=== PATIENT | female | born 1980 | race Caucasian/White ===

== ENCOUNTER 2019-09-01 12:49 | Emergency (ER) | payer MEDICAID ==
[2019-09-01] MEDS ORDERED: AMOXICILLIN 500MG CAPSULE PO ONE (13:02)
[2019-09-01] MEDS ORDERED: HYDROCODONE/APAP 5/325MG TABLET PO ONE (13:02)
[2019-09-01] MEDS ORDERED: DEXAMETHASONE SOD PHOSPHATE 10MG/ML VIAL PO ONE (13:02)
--- NOTE | 2019-09-01 13:02 | Emergency Department Record ---
History of Present Illness - General Stated complaint: SORE THROAT/EAR/HEADACHE PAIN Time Seen by Provider: 09/01/19 12:51 Source: Patient Mode of Arrival: Ambulatory Limitations: No limitations - History of Present Illness Initial comments: 38yo female presents with sore throat and ear pain for about 4 days. She states she woke up on with a sore throat. She was seen in the [facility] care and had a negative strep screen. Since the onset she has developed a pain in right ear, the roof of her mouth, teeth and jaw. No fever. No swelling. No rash. No facial redness or rash. No facial weakness. No eye or vision symptoms. MD complaint: Ear pain, Sore throat -: Days(s) (4) Location: R ear, Throat Severity: Severe Quality: Sharp, Stabbing Consistency: Constant Improves with: None Worsens with: None - Related Data Previous Rx's Medication Instructions Recorded Amoxicillin 500Mg Capsule [Amoxil] 500 mg PO TID #21 tab 09/01/19 Hydrocodone/Acetaminophen [Avon 1 each PO Q6H #8 tablet 09/01/19 5-325 Tablet] Methylprednisolone [Medrol Dose 4 mg PO DAILY #1 tab.ds.pk 09/01/19 Pack] Allergies Allergy/AdvReac Type Severity Reaction Status Date / Time No Known Drug Allergies Allergy Unverified 08/29/19 16:17 Review of Systems Constitutional: Denies: Chills, Fever, Malaise, Weakness Eyes: Denies: Eye discharge, Eye pain, Photophobia, Vision change ENT: Reports: Dental pain, Ear pain, Throat pain. Denies: Congestion, Epistaxis Respiratory: Denies: Cough, Dyspnea, Hemoptysis, Stridor, Wheezes Cardiovascular: Denies: Chest pain, Dyspnea on exertion, Palpitations, Syncope Endocrine: Denies: Fatigue, Polydipsia, Polyuria Gastrointestinal: Denies: Abdominal pain, Diarrhea, Nausea, Vomiting Genitourinary: Denies: Dysuria, Urgency Musculoskeletal: Denies: Arthralgia, Back pain, Joint swelling, Myalgia Skin: Denies: Bruising, Change in color, Rash Neurological: Reports: Headache. Denies: Abnormal gait, Confusion, Numbness, Seizure, Tingling, Vertigo, Weakness Psychiatric: Denies: Anxiety Hematological/Lymphatic: Denies: Easy bleeding, Easy bruising Past Medical History - SOCIAL HISTORY Smoking Status: Current some day smoker - RESPIRATORY Hx Respiratory Disorders: No - CARDIOVASCULAR Hx Cardio Disorders: No - NEURO Hx Neuro Disorders: Yes Hx Headaches: Yes - GI Hx GI Disorders: No - Hx Genitourinary Disorders: No - ENDOCRINE Hx Endocrine Disorders: No - MUSCULOSKELETAL Hx Musculoskeletal Disorders: No - PSYCH Hx Psych Problems: Yes Hx Anxiety: Yes - HEMATOLOGY/ONCOLOGY Hx Hematology/Oncology Disorders: No Family Medical History Hx Cancer: Father, Mother Hx Seizures: Brother/Sister Physical Exam - General General Appearance: Alert, Oriented x3, Cooperative, No acute distress Limitations: No limitations - Head Head exam: Atraumatic, Normocephalic, Normal inspection - Eye Eye exam: Normal appearance, PERRL, EOMI. negative: Conjunctival injection, Nystagmus, Periorbital swelling, Periorbital tenderness, Scleral icterus - ENT ENT exam: Normal exam, Mucous membranes moist, Normal external ear exam, Normal orophraynx, TM's normal bilaterally. negative: Mucous membranes dry Ear exam: Normal external inspection. negative: Auricular hematoma, Auricular trauma, External canal tenderness Nasal Exam: Normal inspection. negative: Active bleeding, Discharge, Dried blood, Foreign body, Sinus tenderness Mouth exam: Normal external inspection. negative: Drooling, Laceration, Muffled voice, Tongue normal Teeth exam: Normal inspection. negative: Dental caries, Dental tenderness # Throat exam: Normal inspection. negative: Tonsillar erythema, Tonsillomegaly, Tonsillar exudate, R peritonsillar mass, L peritonsillar mass - Neck Neck exam: Normal inspection, Full ROM. negative: Lymphadenopathy, Meningismus, Tenderness, Thyromegaly - Respiratory Respiratory exam: Normal lung sounds bilaterally. negative: Respiratory distress - Cardiovascular Cardiovascular Exam: Regular rate, Normal rhythm, Normal heart sounds - Neurological Neurological exam: Alert, CN II-XII intact, Motor sensory deficit, Normal gait, Oriented X3. negative: Abnormal gait, Altered - Psychiatric Psychiatric exam: Normal affect, Normal mood - Skin Skin exam: Dry, Intact, Normal color, Warm Course - Reevaluation(s) Reevaluation #1: 09/01/19 13:08 The patient's pain seems consistent with a nerve associated pain with sensitivity of the jaw, teeth, roof of her mouth. Her examination is very normal and unremarkable. No rash, no blisters or ulcers, no swelling, normal CN function. TM is normal. This pain is an intense burning sharp pain. She will be treated symptomatically and recommend close follow with PCP or return if worse or any other signs of symptoms occur. Disposition Disposition: Discharge Clinical Impression: Neuralgia Disposition: Home, Self-Care Condition: (1) Good Instructions: Trigeminal Neuralgia (ED) Additional Instructions: Call your doctor for the next available follow up appointment Return to the ER for a recheck if worse, any new concerns or questions Take the prescriptions provided as directed Prescriptions: Amoxicillin 500Mg Capsule [Amoxil] 500 mg PO TID #21 tab Methylprednisolone [Medrol Dose Pack] 4 mg PO DAILY #1 tab.ds.pk Hydrocodone/Acetaminophen [Avon 5-325 Tablet] 1 each PO Q6H #8 tablet Forms: Patient Portal Access Time of Disposition: 13:05 Quality - Quality Measures Quality Measures: N/A - Blood Pressure Screening Does Patient Have Any of the Following: No Blood Pressure Classification: Hypertensive Reading Systolic Measurement: 169 Diastolic Measurement: 105 Screening for High Blood Pressure: < Pre-Hypertensive BP, F/U Documented > [G8950] Pre-Hypertensive Follow-up Interventions: Referral to alternative/primary care provider.
== END 2019-09-01 13:33 | disposition home or self-care (01) ==
LOC: ER 12:49
DX: G50.0 Trigeminal neuralgia (principal); F17.210 Nicotine dependence, cigarettes, uncomplicated
CPT/HCPCS: 99284